=== PATIENT | female | born 1970 | race Two or more races ===

== ENCOUNTER 2022-06-14 19:09 | Emergency (ER) | payer OTHER ==
[~2022-06-14] VITALS: Ht 160 cm; Wt 56.7 kg
[2022-06-14 19:38] VITALS: BP 183/93
[2022-06-14 19:52] LABS: BILIRUBIN,URINE NEGATIVE (NEGATIVE); COLOR,URINE YELLOW (YELLOW); LEUKOCYTE ESTERASE ,URINE LARGE (NEGATIVE); NITRITE, URINE POSITIVE (NEGATIVE); PH,URINE 5.5 (5.0-8.0); PROTEIN,URINE 100 mg/dl (NEGATIVE); UGLUCOSE NEGATIVE (NEGATIVE); UROBILINOGEN,URINE 0.2 EU/dL (0.2)
[2022-06-14] MEDS ORDERED: NITR100C6 PO (20:04)
[2022-06-14] MEDS ORDERED: PHEN-894 PO (20:04)
--- NOTE | 2022-06-14 20:12 | NUR ---
Patient discharged to home in stable condition. Rx and Written and verbal after care instructions given. Patient verbalizes understanding of instruction.
[2022-06-14 20:18] LABS: BACTERIA,URINE 3+ /HPF (None Seen); RBC,URINE 81-100 /HPF (0-2); SQUAMOUS EPITHELIAL CELL,UR 0-2 /HPF (None Seen); WBC,URINE 81-100 /HPF (0-3)
== END 2022-06-14 20:17 | disposition home or self-care (01) ==
LOC: ER 19:11
DX: N39.0 Urinary tract infection, site not specified (principal); Z60.2 Problems related to living alone
CPT/HCPCS: 81001; 87086-TC; 87186-TC

== ENCOUNTER 2024-04-09 16:02 | Emergency (ER) | payer OTHER ==
[~2024-04-09] VITALS: Ht 160 cm; Wt 58.1 kg
[~2024-04-09 16:02] MED LIST: NITR100C6 PO; PHEN-894 PO
[2024-04-09 16:08] VITALS: BP 137/75; TEMP 98.4; O2SAT 100
== END 2024-04-09 18:01 | disposition home or self-care (01) ==
LOC: ER 16:02
DX: M25.532 Pain in left wrist (principal); Z60.2 Problems related to living alone
CPT/HCPCS: 73110

== ENCOUNTER 2024-07-11 15:32 | Inpatient (IN) | payer OTHER ==
[~2024-07-11] VITALS: Ht 160 cm; Wt 54.4 kg
[2024-07-11 15:58] LABS: BASOPHILS % (AUTO) 0.5 % (0.0-2.0); EOSINOPHILS % (AUTO) 0.5 % (0.0-6.0); HEMATOCRIT 45 % (33-45); HEMOGLOBIN 14.9 g/dL (11.5-14.8); LYMPHOCYTES # (AUTO) 1.9 K/uL (0.8-4.8); LYMPHOCYTES % (AUTO) 23.1 % (20.0-44.0); MEAN CORPUSCULAR HEMOGLOBIN 28 PG (26.0-33.0); MEAN CORPUSCULAR HGB CONC 33 g/dl (31.0-36.0); MEAN CORPUSCULAR VOLUME 86 fL (82-100); MONOCYTES # (AUTO) 0.4 K/uL (0.1-1.30); MONOCYTES % (AUTO) 5.2 % (2.0-12.0); NEUTROPHILS # (AUTO) 5.9 K/uL (1.8-8.9); NEUTROPHILS % (AUTO) 70.7 % (43.0-81.0); PLATELET COUNT (AUTO) 282 K/uL (150-450); RED BLOOD CELL COUNT(AUTO) 5.25 MIL/uL (4.0-5.2); RED CELL DISTRIBUTION WIDTH 13.6 % (11.5-15.0); WHITE BLOOD COUNT (AUTO) 8.3 K/uL (4.3-11.0)
[2024-07-11] MEDS ORDERED: MORPHINE SULFATE INJ 2 MG/ML DISP.SYRIN ONE (16:00)
[2024-07-11] MEDS: MORPHINE SULFATE INJ 2 MG/ML DISP.SYRIN IV ONE (16:01)
[2024-07-11 16:10] LABS: CALCIUM, SERUM 9.9 mg/dL (8.5-10.1); CARBON DIOXIDE 29 mmol/L (21-32); CHLORIDE 104 mmol/L (98-107); CREATININE 0.9 mg/dL (0.6-1.3); GLUCOSE 112 mg/dL (74-106); POTASSIUM 4.2 mmol/L (3.5-5.1); SODIUM SERUM 140 mmol/L (136-145); UREA NITROGEN, BLOOD 12 mg/dL (7-18)
[2024-07-11 16:22] LABS: ALANINE AMINOTRANSFERASE 25 U/L (12-78); ALBUMIN 4.3 g/dL (3.4-5.0); ALKALINE PHOSPHATASE 112 U/L (46-116); ASPARTATE AMINOTRANSFERASE 19 U/L (15-37); BILIRUBIN,DIRECT 0.1 mg/dL (0.0-0.2); BILIRUBIN,TOTAL 0.4 mg/dL (0.2-1.0); NT-PRO BNP 222 pg/mL (0-125); TOTAL PROTEIN, SERUM 8.3 g/dL (6.4-8.2)
[2024-07-11] MEDS ORDERED: IOHEXOL-350 100 ML VIAL IV ONE (17:06)
[2024-07-11] MEDS ORDERED: IV NS 0.9% 250 ML IV ONE (17:06)
[2024-07-11] MEDS: ASPIRIN 325 MG TABLET PO ONE (18:04)
[2024-07-11] MEDS: HEPARIN INFUSION/D5W 500 ML IV ONE (19:30)
[2024-07-11] MEDS ORDERED: HEPARIN SODIUM, PORCINE 5000 UNITS/1 ML VIAL ONE (20:03)
[2024-07-11] MEDS ORDERED: HEPARIN INFUSION/D5W 500 ML IV ONE (20:03)
[2024-07-11 20:06] LABS: INR 1.03 (0.91-1.10); PARTIAL THROMBOPLASTIN TIME 27.5 SEC (24.3-34.3); PROTHROMBIN TIME 10.9 SECS (9.2-11.1)
[2024-07-11] MEDS: HEPARIN SODIUM, PORCINE 5000 UNITS/1 ML VIAL IV ONE (20:21)
[2024-07-11 20:50] VITALS: BP 136/91; TEMP 98.2; O2SAT 94
[2024-07-11] MEDS ORDERED: MORPHINE SULFATE INJ 4 MG/ML DISP.SYRIN IV PRN (23:00)
[2024-07-11] MEDS ORDERED: ACETAMINOPHEN 325 MG TABLET PO PRN (23:00)
[2024-07-11] MEDS ORDERED: MORPHINE SULFATE INJ 2 MG/ML DISP.SYRIN IV PRN (23:00)
[2024-07-11] MEDS ORDERED: ONDANSETRON HCL/PF 4 MG/2 ML VIAL IV PRN (23:00)
[2024-07-12] VITALS: BP 117/80; TEMP 97.8; O2SAT 95
[2024-07-12] MEDS: NITROGLYCERIN 0.4 MG/TAB BOTTLE SL PRN (03:32)
[2024-07-12 07:00] VITALS: BP 136/91; TEMP 98.1; O2SAT 98
[2024-07-12] MEDS: ASPIRIN 325 MG TABLET PO SCH (09:22)
[2024-07-12] MEDS: ENOXAPARIN SODIUM 60 MG/0.6 ML DISP.SYRIN SQ SCH (09:23)
[2024-07-12 10:42] LABS: THYROID STIMULATING HORMONE 5.41 uIU/mL (0.358-3.74)
[2024-07-12] MEDS: METOPROLOL TARTRATE 50 MG TABLET PO SCH (11:25)
[2024-07-12 12:00] VITALS: BP 130/89; TEMP 98.1; O2SAT 97
[2024-07-12 16:00] VITALS: BP 108/74; TEMP 98.4; O2SAT 98
[2024-07-12] MEDS ORDERED: IOHEXOL-350 100 ML VIAL IV ONE (16:56)
[2024-07-12] MEDS ORDERED: CT SWABBABLE VALVE TRANS SET 1 EA INFUS.SET MC ONE (16:56)
[2024-07-12] MEDS ORDERED: IV NS 0.9% 250 ML IV ONE (16:57)
[2024-07-12] MEDS: METOPROLOL TARTRATE INJ 5 MG/5 ML AMPUL IVP PRN (17:15)
[2024-07-12] MEDS: NITROGLYCERIN 0.4 MG/TAB BOTTLE SL ONE (17:27)
[2024-07-12 20:00] VITALS: BP_SYST 107; BP_SYST 110; BP_DIAS 64; BP_DIAS 71; TEMP 97.7; TEMP 98.1; O2SAT 94; O2SAT 98
[2024-07-12] MEDS ORDERED: ATORVASTATIN 40 MG TABLET PO SCH (22:00)
== END 2024-07-12 20:20 | disposition short-term general hospital (02) | DRG 282 ==
LOC: ER 15:32 → TELE 17:51
PROVIDERS: ADMIT Internal Medicine; ATTEND Internal Medicine
DX: I21.4 Non-ST elevation (NSTEMI) myocardial infarction (principal); I10 Essential (primary) hypertension; Z87.891 Personal history of nicotine dependence; I25.10 Atherosclerotic heart disease of native coronary artery without angina pectoris; Z82.49 Family history of ischemic heart disease and other diseases of the circulatory system
CPT/HCPCS: 36415; 71045-TC; 75574; 80048-TC; 80061-TC; 80076-TC; 83880; 84439-TC; 84443-TC; 84484-TC; 85025-TC; 85730-TC; 86850-TC; 93307-TC; G0378; J1644; J1650; J2270; J3490; J7050; Q9967